=== PATIENT | female | born 1975 | race Caucasian/White ===

== ENCOUNTER 2020-12-03 11:37 | Observation (INO) ==
[~2020-12-03 11:37] MED LIST: Clindamycin 900 MG/D5W BAG IVPB ONE; Naloxone 0.4 mg VIAL 0.4 mg/ml 1 ml VIAL IV PUSH PRN
[2020-12-03] MEDS ORDERED: Ondansetron 4 mg VIAL 2 MG/ML 2 ml VIAL ONE ×2 (11:54→20:04)
[2020-12-03] MEDS ORDERED: oxyCODONE SR 10 mg TAB ONE (11:54)
[2020-12-03] MEDS ORDERED: HYDROmorphone PCA 20 MG/20 ML PCA.SYRING PCA SCH (12:00)
[2020-12-03 12:20] LABS: ABS Basophils 0.1 10^3/ul (0-0.2); ABS Eosinophils 0.2 10^3/ul (0-0.6); ABS Lymphocytes 4.2 10^3/ul (1.0-4.8); ABS Monocytes 0.8 10^3/ul (0-0.8); ABS Neutrophils 4.3 10^3/ul (1.5-7.7); Eosinophil % 2.1 %; Hematocrit 42 % (35-47); Hemoglobin 14.4 g/dL (12.0-16.0); Lymphocyte % 43.6 %; Mean Corpuscular HGB Conc 34 g/dL (31-36); Mean Corpuscular Hemoglobin 30 pg (27-31); Mean Corpuscular Volume 88 fL (80-97); Mean Platelet Volume 7.7 fL (7.4-10.4); Platelet Count 363 10^3/uL (150-450); Red Blood Count 4.79 10^6 /uL (3.70-4.87); Red Cell Distribution Width 13 % (10-15); White Blood Count 9.6 10^3/uL (3.5-10.8)
[2020-12-03 12:38] LABS: Activated Partial Thrombo Time 38.2 seconds (26.0-38.0); INR 0.96 (0.82-1.09)
[2020-12-03 12:40] LABS: Anion Gap 9 mmol/L (2-11); Blood Urea Nitrogen 14 mg/dL (6-24); CO2 Carbon Dioxide 23 mmol/L (22-32); Calcium 9.7 mg/dL (8.6-10.3); Chloride 106 mmol/L (101-111); EGFR African American 125.4 (>60); EGFR Non-African American 103.6 (>60); Glucose 92 mg/dL (70-100); Potassium 4.1 mmol/L (3.5-5.0); Sodium 138 mmol/L (135-145)
[2020-12-03 12:46] LABS: HCG Pregnancy < 0.60 mIU/mL
[2020-12-03] MEDS ORDERED: Nitro 2% OINT (Nitroglycerin) 1 INCH/PAK ONE (12:46)
[2020-12-03] MEDS ORDERED: Heparin 2 UNITS/ML IVPREMIX 2,000 UNIT/1,000 ML BAG IV ONE (13:21)
[2020-12-03] MEDS ORDERED: Lidocaine 1% VIAL 10 MG/ML VIAL ONE (13:21)
[2020-12-03] MEDS ORDERED: Iohexol 350 (CONTRAST) 200 ML MDV IV ONE (13:21)
[2020-12-03] MEDS ORDERED: nitroGLYCERIN DRIP 25,000 MCG/250 ML BTL ONE (13:29)
[2020-12-03] MEDS ORDERED: Midazolam 5 mg/5 ml VIAL 1 mg/ml 5 ml VIAL (5 mg) ONE ×2 (13:29→15:47)
[2020-12-03] MEDS ORDERED: fentaNYL 100 mcg/2 ml 50 MCG/ML VIAL ONE ×3 (13:29→15:26)
[2020-12-03] MEDS ORDERED: VERAPAMIL 2.5 MG/ML 2 ML VIAL ** 5 mg/2 ml ONE (13:29)
[2020-12-03] MEDS ORDERED: Heparin 1,000 UNIT/ML 10 ml (10,000 UNITS) CATHLAB/DIALYSIS ONE (13:40)
[2020-12-03] MEDS ORDERED: Heparin 2 UNITS/ML IVPREMIX 1,000 UNIT/500 ML BAG IV ONE (15:11)
[2020-12-03] MEDS ORDERED: HYDROmorphone 1 MG/1 ML SYRINGE ONE ×4 (15:30→15:59)
[2020-12-03] MEDS ORDERED: hydrALAZINE 20 mg/ml 1 ML Vial IV IV SLOW PU PRN (16:48)
[2020-12-03] MEDS ORDERED: hydrALAZINE 20 mg/ml 1 ML Vial IV ONE ×2 (16:51→18:43)
[2020-12-03] MEDS ORDERED: hydrALAZINE 20 mg/ml 1 ML Vial IV IV SLOW PU ONE (18:38)
[2020-12-03] MEDS ORDERED: Lorazepam PYXIS KEY ONE (19:38)
[2020-12-03] MEDS ORDERED: LORazepam 2 mg VIAL 1 ml ONE (19:39)
[2020-12-03] MEDS ORDERED: Lorazepam PYXIS KEY PRN (19:54)
[2020-12-03] MEDS ORDERED: LORazepam 2 mg VIAL 1 ml IV PUSH ONE (20:00)
[2020-12-03] MEDS: Ondansetron 4 mg VIAL 2 MG/ML 2 ml VIAL IV SCH (20:05)
[2020-12-04] MEDS ORDERED: hydrALAZINE 20 mg/ml 1 ML Vial IV IV SLOW PU PRN (00:30)
[2020-12-04] MEDS: Ondansetron 4 mg VIAL 2 MG/ML 2 ml VIAL IV SCH ×2 (02:44→08:05)
[2020-12-04] MEDS ORDERED: fentaNYL 100 mcg/2 ml 50 MCG/ML VIAL IV SLOW PU ONE ×2 (02:58→06:26)
[2020-12-04] MEDS ORDERED: HYDROcodone/ACETAMIN 5/325 mg TAB PO PRN (09:34)
[2020-12-04] MEDS ORDERED: Ketorolac 10 mg TAB (NF) PO SCH (10:00)
[2020-12-04 11:03] VITALS: BP 152/80
== END 2020-12-04 11:30 | disposition home or self-care (01) ==
LOC: CHICATH 11:37 → SSU 11:37
PROVIDERS: ADMIT Radiology Diagnostic Radiology; ATTEND Radiology Diagnostic Radiology
PROC: ANG.UFE (2020-12-03 13:10)